=== PATIENT | male | born 1950 | race Caucasian/White ===

== ENCOUNTER 2017-09-07 17:25 | Emergency (ER) | payer OTHER ==
[~2017-09-07] VITALS: Ht 167.6 cm; Wt 73.0 kg
[2017-09-07 17:32] VITALS: Ht 167.6 cm; Wt 73.0 kg
[2017-09-07 19:21] VITALS: BP 137/96
== END 2017-09-07 19:21 | disposition home or self-care (01) ==
LOC: ED 17:25
DX: S43.005A Unspecified dislocation of left shoulder joint, initial encounter (principal); Y93.89 Activity, other specified; Y92.89 Other specified places as the place of occurrence of the external cause; Y99.8 Other external cause status